=== PATIENT | female | born 1995 ===

== ENCOUNTER 2016-10-31 10:51 | Emergency (ER) | payer OTHER ==
[2016-10-31 11:00] VITALS: TEMP 98.6
[2016-10-31 12:22] LABS: RBC URINE 7 /hpf (0-3); URINE BILIRUBIN NEGATIVE (NEGATIVE); URINE BLOOD 1+ (NEGATIVE); URINE COLOR Yellow (YELLOW); URINE GLUCOSE (UA) NORMAL (Normal); URINE KETONE NEGATIVE (NEGATIVE); URINE LEUKOCYTE ESTERASE NEG Leu/uL (Negative); URINE PROTEIN NEGATIVE (NEGATIVE); URINE UROBILINOGEN NORMAL mg/dL (0.2-1.0); WBC URINE 1 /hpf (0-5)
--- NOTE | 2016-10-31 12:33 | C.PDOC ---
History Of Present Illness 21 y/o female presents to ED requesting test. Patient deaf, history obtained by mother. Pt took test at home 1 week ago with faint line, LMP 4/25. Contrary to triage, patient denies abdominal pain but reports breast tenderness and nausea. Denies vomiting, vaginal bleeding or any other complaints. Time Seen by Provider: 10/31/16 11:42 Chief Complaint (Nursing): Abdominal Pain History Per: Family History/Exam Limitations: physical impairment (deaf) Onset/Duration Of Symptoms: Days Current Symptoms Are (Timing): Still Present Severity: Mild Recent travel outside of the [place]: No Past Medical History Reviewed: Historical Data, Nursing Documentation, Vital Signs Vital Signs: Last Vital Signs Temp 98.6 F 10/31/16 10:57 Pulse 82 10/31/16 12:40 Resp 18 10/31/16 12:40 BP 115/68 10/31/16 12:40 Pulse Ox 100 10/31/16 12:47 - Medical History PMH: No Chronic Diseases Surgical History: No Surg Hx Family History: States: Unknown Family Hx - Social History Hx Alcohol Use: No Hx Substance Use: No - Immunization History Hx Tetanus Toxoid Vaccination: No Hx Influenza Vaccination: No Hx Pneumococcal Vaccination: No Review Of Systems Constitutional: Positive for: Other (breast tenderness). Negative for: Fever Cardiovascular: Negative for: Chest Pain, Palpitations Respiratory: Negative for: Cough, Shortness of Breath Gastrointestinal: Positive for: Nausea. Negative for: Vomiting, Abdominal Pain Genitourinary: Negative for: Vaginal Bleeding, Pelvic Pain Musculoskeletal: Negative for: Back Pain Skin: Negative for: Rash Neurological: Negative for: Headache Physical Exam - Physical Exam Appears: Non-toxic, No Acute Distress Skin: Warm, Dry, No Rash Head: Atraumatic, Normacephalic Eye(s): bilateral: Normal Inspection Ear(s): Bilateral: Other (hearing impaired, hearing aids) Oral Mucosa: Moist Neck: Normal ROM Chest: Symmetrical Cardiovascular: Rhythm Regular, No Murmur Respiratory: Normal Breath Sounds, No Rales, No Rhonchi, No Wheezing Gastrointestinal/Abdominal: Normal Exam, Soft, No Tenderness, No Mass, No Distention, No Guarding Back: Normal Inspection, No CVA Tenderness Extremity: Bilateral: Atraumatic, Normal ROM Neurological/Psych: Oriented x3, Normal Speech Gait: Steady ED Course And Treatment O2 Sat by Pulse Oximetry: 100 (room air) Pulse Ox Interpretation: Normal Medical Decision Making Medical Decision Making: Plan: * UA * U preg (+) test. Inform the patient and mother of results. Instructed patient to follow up outpatient with OBGYN for care. Disposition Counseled Patient/Family Regarding: Diagnosis, Need For Followup, Rx Given - Disposition Referrals: [facility] [Outside] [facility] [Outside] [facility] [Outside] Disposition: HOME/ ROUTINE Disposition Time: 12:30 Condition: STABLE Additional Instructions: Martinez prueba fue positiva para el embarazo Es importante que usted siga en la clnica con gineclogo Supriya vitaminas prenatales Prescriptions: Multivit/Folic Acid/I [ Plus] 1 tab PO DAILY #60 tab Instructions: (ED) Print Language: HUNGARIAN - POA Present On Arrival: None - Clinical Impression Clinical Impression: Positive test - 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 - Scribe Statement The provider has reviewed the documentation as recorded by the Scribrobson Montiel All medical record entries made by the Camiloibrobson were at my direction and personally dictated by me. I have reviewed the chart and agree that the record accurately reflects my personal performance of the history, physical exam, medical decision making, and the department course for this patient. I have also personally directed, reviewed, and agree with the discharge instructions and disposition.
[2016-10-31 12:42] VITALS: BP 115/68; PULSE 82; RESP 18
[2016-10-31 12:46] VITALS: O2SAT 100
== END 2016-10-31 12:45 | disposition home or self-care (01) ==
LOC: C.ER 10:51
DX: Z32.01 Encounter for pregnancy test, result positive (principal)

== ENCOUNTER 2017-06-07 14:29 | Emergency (ER) | payer OTHER ==
[2017-06-06 10:05] VITALS: BMI 29.7
== END 2017-06-07 15:35 | disposition home or self-care (01) ==
LOC: C.EROB 14:29
DX: Z36.9 Encounter for antenatal screening, unspecified (principal); Z3A.39 39 weeks gestation of pregnancy

== ENCOUNTER 2017-06-12 06:09 | Emergency (ER) | payer MEDICAID, OTHER ==
[2017-06-06 10:05] VITALS: BMI 29.7
--- NOTE | 2017-06-12 07:33 | OBHP ---
Datetime: 06/12/2017 07:27 IP Adm Impression: Term, intrauterine ; No Active Labor IP Admit Plan: Discharge home Admit Comment, IP Provider: Chief complaint-contractions HPI Patient is a 22 year old at 39w6d HORACIO 06/13/2017 by LMP presents to L+D for CTX .denies va ginal bleeding or loss of fluid. 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 09/05/2016 Denies hx of fibroids, ovarian cysts, STIs Denies hx of abnormal pap smears Allergies: NKDA Medications: PNV Medical History: Congenital Deafness Surgical Histry: Denies Social History: Denies alcohol, tobacco, drug use Family History: Non-contributor Exam see exam section A/P 22 y/o at 39.6 wga with c/o ctx.no active labor -discharge home -follow up in clinic in 2 days Pelvic Type - PN: Adequate Extremities - PN: Normal Abdomen - PN: Normal Back - PN: Normal Lungs - PN: Normal Heart - PN: Normal Neurologic - PN: Normal General - PN: Normal Contraction Comments Provider: irregular EGA AdmitDate IP: 39.6 Vital Signs Provider: Reviewed IP Chief Complaint: Uterine contractions FHR Category Provider Fetus A: Category I Dilatation, Provider: 0 Genitourinary Exam: Normal DTRs - PN: Normal Datetime: 06/07/2017 15:50 FHR - Baseline A Provider: 140 Comments, ACOG Physical Exam: VSS Gen: AAOx3 Abd: Soft, gravid Ext: No clubbing, cyanosis, edema SVE: closed/thick/high IP Hx Assessment: The History has been Reviewed and is Current NICHD Variability Prov Fetus A: Moderate 6-25bpm NICHD Accel Fetus A IP Provider: 15X15 NICHD Decel Fetus A IP Provider: None Effacement, Provider: thick Station, Provider: high
[2017-06-12 11:16] VITALS: BP 129/78; PULSE 84; TEMP 97.9
== END 2017-06-12 07:00 | disposition home or self-care (01) ==
LOC: C.EROB 06:09
DX: O47.1 False labor at or after 37 completed weeks of gestation (principal); Z3A.39 39 weeks gestation of pregnancy

== ENCOUNTER 2017-06-13 07:04 | Inpatient (IN) | payer MEDICAID, OTHER ==
[2017-06-13 07:28] VITALS: BMI 32.3
--- NOTE | 2017-06-13 07:28 | OBHP ---
Datetime: 06/13/2017 07:24 IP Adm Impression: Term, intrauterine Admit Comment, IP Provider: a 40weeks deaf came with c/o ctxs started 3 days , got worse angel, n o vb, lof+fm. obhx primi pmh deaf med pnv allnkda psh den soch den ve closed a/p at 40weeks pain ua npo/ivf cont renee and efm cont close obser Pelvic Type - PN: Adequate Extremities - PN: Normal Abdomen - PN: Normal Back - PN: Normal Breast - PN: Normal Lungs - PN: Normal Heart - PN: Normal Thyroid - PN: Normal Neurologic - PN: Normal HEENT - PN: Normal General - PN: Normal FHR - Baseline A Provider: 130 Contraction Comments Provider: q1-5 EGA AdmitDate IP: 40.0 Vital Signs Provider: Reviewed; Within Normal Limits IP Chief Complaint: Uterine contractions NICHD Variability Prov Fetus A: Moderate 6-25bpm NICHD Accel Fetus A IP Provider: 15X15 FHR Category Provider Fetus A: Category I Dilatation, Provider: 0 Effacement, Provider: 0 Station, Provider: -3 Genitourinary Exam: Normal DTRs - PN: Normal
[2017-06-13] MEDS: Lactated Ringer's 1,000 ML IV SCH ×2 (08:09→18:26)
[2017-06-13 08:56] LABS: SQUAMOUS EPITHIAL 8 /hpf (0-5); URINE BACTERIA FEW (<OCC); URINE BILIRUBIN NEGATIVE (NEGATIVE); URINE BLOOD 3+ (NEGATIVE); URINE CLARITY Hazy (Clear); URINE COLOR Yellow (YELLOW); URINE GLUCOSE (UA) NORMAL (Normal); URINE NITRATE NEGATIVE (NEGATIVE); URINE PROTEIN 2+ mg/dL (NEGATIVE); URINE UROBILINOGEN NORMAL mg/dL (0.2-1.0)
[2017-06-13 08:57] LABS: URINE LEUKOCYTE ESTERASE 1+ Leu/uL (Negative)
--- NOTE | 2017-06-13 09:32 | OBADHP ---
Datetime: 06/13/2017 07:24 Admit Comment, IP Provider: a 40weeks deaf came with c/o ctxs started 3 days , got worse angel, n o vb, lof+fm. obhx primi pmh deaf med pnv allnkda psh den soch den ve closed a/p at 40weeks pain ua npo/ivf cont renee and efm cont close obser after ivf pt still c/o pin 12/21. bp 147/87 plan admit to l_d pain mange cont renee and efm pih work anticipte Pelvic Type - PN: Adequate Extremities - PN: Normal Abdomen - PN: Normal Back - PN: Normal Breast - PN: Normal Lungs - PN: Normal Heart - PN: Normal Thyroid - PN: Normal Neurologic - PN: Normal HEENT - PN: Normal General - PN: Normal FHR - Baseline A Provider: 130 Contraction Comments Provider: q1-5 IP Hx Assessment: The History has been Reviewed and is Current Vital Signs Provider: Reviewed; Within Normal Limits IP Chief Complaint: Uterine contractions NICHD Variability Prov Fetus A: Moderate 6-25bpm NICHD Accel Fetus A IP Provider: 15X15 FHR Category Provider Fetus A: Category I Dilatation, Provider: 0 Effacement, Provider: 0 Station, Provider: -3 Genitourinary Exam: Normal DTRs - PN: Normal EGA AdmitDate IP: 40.0 IP Adm Impression: Term, intrauterine ; Intact Membranes Datetime: 06/12/2017 07:27 IP Admit Plan: Discharge home Datetime: 06/07/2017 15:50 Comments, ACOG Physical Exam: VSS Gen: AAOx3 Abd: Soft, gravid Ext: No clubbing, cyanosis, edema SVE: closed/thick/high NICHD Decel Fetus A IP Provider: Agnes
[2017-06-13 10:11] LABS: BASO # 0.1 K/uL (0.0-0.2); EOS # 0.1 K/uL (0.0-0.7); EOS % 0.6 % (0.0-4.0); HEMOGLOBIN 9.2 g/dL (11.0-16.0); LYMPH # 1.9 K/uL (1.0-4.3); LYMPH % 20.5 % (20.0-40.0); MEAN CELL VOLUME 75.7 fL (81.0-99.0); MEAN CORPUSCULAR HEMOGLOBIN 25.3 pg (27.0-31.0); MEAN CORPUSCULAR HGB CONC 33.4 g/dL (33.0-37.0); MEAN PLATELET VOLUME 12.3 fL (7.2-11.7); MONO # 0.9 K/uL (0.0-0.8); MONO % 9.4 % (0.0-10.0); NEUT # 6.2 K/uL (1.8-7.0); NEUT % 68.5 % (50.0-75.0); NRBC % 0.1 % (0.0-2.0); RBC 3.63 Mil/uL (3.80-5.20); RED CELL DISTRIBUTION WIDTH 17.5 % (11.5-14.5); WHITE BLOOD COUNT 9.1 K/uL (4.8-10.8)
[2017-06-13 10:23] LABS: INR 0.9; PROTHROMBIN TIME 9.9 SECONDS (9.7-12.2)
[2017-06-13] MEDS ORDERED: Nalbuphine 20 mg/ml Inj (1 ml) ONE ×3 (10:47→18:06)
[2017-06-13] MEDS: Nalbuphine 20 mg/ml Inj (1 ml) IVP PRN ×2 (10:50→18:15)
[2017-06-13 10:52] LABS: ALT/SGPT 42 U/L (9-52); AST/SGOT 45 U/L (14-36); GFR AFRICAN-AMERICAN > 60; GFR NON-AFRICAN AMERICAN > 60
[2017-06-13 11:54] LABS: ALB/GLOB RATIO 0.9 (1.0-2.1); ALBUMIN 3.2 g/dL (3.5-5.0); BLOOD UREA NITROGEN 7 mg/dL (7-17); CALCIUM 8.9 mg/dl (8.6-10.4)
--- NOTE | 2017-06-13 17:48 | OBPN ---
Datetime: 06/13/2017 17:46 IP Procedures: Sterile Vag Exam Contraction Comments Provider: q1-5 FHR - Baseline A Provider: 130 IP Progress Note Comment: pt was examined at bed side ve 1/80/-3 cont close observation will put cervidil Vital Signs Provider: Reviewed; Within Normal Limits NICHD Accel Fetus A IP Provider: 15X15 FHR Category Provider Fetus A: Category I NICHD Variability Prov Fetus A: Moderate 6-25bpm Dilatation, Provider: 1 Effacement, Provider: 80 Station, Provider: -3 Datetime: 06/07/2017 15:50 NICHD Decel Fetus A IP Provider: None
[2017-06-13] MEDS ORDERED: Oxytocin 30 UNIT 30 UNITS/500 ML BAG IV PRN (21:13)
[2017-06-14 01:31] LABS: HEMOGLOBIN 8.8 g/dL (11.0-16.0); MEAN CELL VOLUME 75.9 fL (81.0-99.0); MEAN CORPUSCULAR HEMOGLOBIN 25.1 pg (27.0-31.0); MEAN PLATELET VOLUME 12.3 fL (7.2-11.7); RBC 3.51 Mil/uL (3.80-5.20); RED CELL DISTRIBUTION WIDTH 17.4 % (11.5-14.5); WHITE BLOOD COUNT 10.2 K/uL (4.8-10.8)
[2017-06-14 01:44] LABS: PLATELET COUNT 112 K/uL (130-400)
[2017-06-14 02:49] LABS: BANDS 4 % (0-2); LYMPHOCYTE 16 % (20-40); MONOCYTE 6 % (0-10); NEUTROPHIL 74 % (50-75); PLATELET ESTIMATE SLIGHTLY DECREASED (NORMAL); TOTAL CELLS COUNTED 100
[2017-06-14 02:50] LABS: ANISOCYTOSIS MODERATE; GIANT PLATELETS PRESENT; LARGE PLATELETS PRESENT; POLYCHROMIC MODERATE
[2017-06-14 02:51] LABS: HYPOCHROMIC SLIGHT; MICROCYTOSIS MODERATE; SPHEROCYTES SLIGHT
[2017-06-14] MEDS ORDERED: Fentanyl/Bupivacaine HCl 250 ML EPI ONE (03:33)
[2017-06-14] MEDS ORDERED: Oxytocin 30 UNIT 30 UNITS/500 ML BAG IV ONE ×2 (03:41→16:53)
--- NOTE | 2017-06-14 06:34 | OBPN ---
Datetime: 06/14/2017 06:31 IP Progress Impression: Normal progression of labor IP Procedures: Artificial ROM; Sterile Vag Exam FHR - Baseline A Provider: 130 IP Progress Note Comment: pt was seen bed side. feels good ve 4/90/-1 arom mild meconium cont pitocin s/p epidural anticipate Vital Signs Provider: Reviewed; Within Normal Limits NICHD Accel Fetus A IP Provider: 15X15 FHR Category Provider Fetus A: Category I NICHD Variability Prov Fetus A: Moderate 6-25bpm Dilatation, Provider: 4 Effacement, Provider: 90 Station, Provider: -1
[2017-06-14 09:30] LABS: BASO # 0.1 K/uL (0.0-0.2); BASO % 0.5 % (0.0-2.0); EOS % 0.4 % (0.0-4.0); LYMPH # 1.6 K/uL (1.0-4.3); LYMPH % 16.7 % (20.0-40.0); MEAN CELL VOLUME 75.4 fL (81.0-99.0); MEAN CORPUSCULAR HEMOGLOBIN 25.1 pg (27.0-31.0); MEAN CORPUSCULAR HGB CONC 33.3 g/dL (33.0-37.0); MEAN PLATELET VOLUME 12.5 fL (7.2-11.7); MONO # 0.9 K/uL (0.0-0.8); MONO % 9.2 % (0.0-10.0); NEUT # 6.9 K/uL (1.8-7.0); NEUT % 73.2 % (50.0-75.0); NRBC % 0.1 % (0.0-2.0); RBC 3.6 Mil/uL (3.80-5.20); RED CELL DISTRIBUTION WIDTH 17.3 % (11.5-14.5); WHITE BLOOD COUNT 9.4 K/uL (4.8-10.8)
[2017-06-14 09:41] LABS: SQUAMOUS EPITHIAL 2 /hpf (0-5); URINE BACTERIA RARE (<OCC)
[2017-06-14 09:46] LABS: PH,URINE 5.5 (5.0-8.0); URINE BILIRUBIN MODERATE (NEGATIVE); URINE BLOOD LARGE (NEGATIVE); URINE CLARITY Clear (Clear); URINE COLOR YELLOW (YELLOW); URINE GLUCOSE (UA) NEGATIVE (Normal)
[2017-06-14 09:47] LABS: INR 0.9; PROTHROMBIN TIME 10.2 SECONDS (9.7-12.2); URINE LEUKOCYTE ESTERASE NEGATIVE Leu/uL (Negative); URINE NITRATE NEGATIVE (NEGATIVE); URINE PROTEIN 30 mg/dL (NEGATIVE)
[2017-06-14 09:55] LABS: ALB/GLOB RATIO 0.9 (1.0-2.1); ALBUMIN 3.1 g/dL (3.5-5.0); ALT/SGPT 52 U/L (9-52); AST/SGOT 58 U/L (14-36); BLOOD UREA NITROGEN 12 mg/dL (7-17); CALCIUM 8.9 mg/dl (8.6-10.4); GFR AFRICAN-AMERICAN > 60; GFR NON-AFRICAN AMERICAN > 60; URIC ACID 6.7 mg/dL (2.2-7.5)
[2017-06-14] MEDS ORDERED: Magnesium Sulfate 4 gm/100 ml 4 GM/100 ML BAG IVPB ONE ×2 (13:00→13:21)
[2017-06-14] MEDS ORDERED: Magnesium Sulfate 20 gm 20 GM/500 ML BAG IV SCH ×2 (13:00→20:45)
[2017-06-14] MEDS ORDERED: Lactated Ringer's 1,000 ML IV SCH (13:03)
[2017-06-14] MEDS ORDERED: Magnesium Sulfate 20 gm 20,000 MG/500 ML BAG IV ONE ×2 (13:21→20:47)
--- NOTE | 2017-06-14 13:47 | OBHP ---
Datetime: 06/13/2017 07:24 IP Adm Impression: Term, intrauterine ; Intact Membranes Admit Comment, IP Provider: a 40weeks deaf came with c/o ctxs started 3 days , got worse angel, n o vb, lof+fm. obhx primi pmh deaf med pnv allnkda psh den soch den ve closed a/p at 40weeks pain ua npo/ivf cont renee and efm cont close obser after ivf pt still c/o pin 12/21. bp 147/87 plan admit to l_d pain mange cont renee and efm pih work anticipte IP Hx Assessment: The History has been Reviewed and is Current EGA AdmitDate IP: 40.0
[2017-06-14] MEDS ORDERED: AMPicillin 2 GM in Sodium Chloride 100 ML IVPB SCH (15:00)
[2017-06-14] MEDS ORDERED: Sodium Citrate/Citric Acid 15 ml Sol PO ONE (17:27)
[2017-06-14] MEDS ORDERED: Sodium Bicarbonate (8.4%) 50 Meq Syringe ONE (17:41)
[2017-06-14] MEDS ORDERED: cefOXitin 2 GM in Sodium Chloride 0.9% 100 ML IVPB ONE (18:00)
[2017-06-14] MEDS ORDERED: Oxytocin 10 Units/ml Inj ONE (18:53)
[2017-06-14] MEDS ORDERED: Midazolam 2 MG/2 ML VIAL ONE (19:02)
[2017-06-14] MEDS ORDERED: Morphine 1 mg/ml preservative-free Inj(Duramorph) ONE (19:05)
[2017-06-14] MEDS ORDERED: Lidocaine 2% MPF (5 ml) Inj ONE (19:13)
[2017-06-14] MEDS ORDERED: cefOXitin IV 2 gm in Saline 2 GM in Sodium Chloride 0.9% 100 ML IV SCH (20:45)
[2017-06-14 22:41] LABS: HEMOGLOBIN 9.2 g/dL (11.0-16.0); MEAN CELL VOLUME 75.4 fL (81.0-99.0); MEAN CORPUSCULAR HEMOGLOBIN 24.2 pg (27.0-31.0); MEAN CORPUSCULAR HGB CONC 32.1 g/dL (33.0-37.0); MEAN PLATELET VOLUME 11.9 fL (7.2-11.7); RBC 3.78 Mil/uL (3.80-5.20); WHITE BLOOD COUNT 18.8 K/uL (4.8-10.8)
--- NOTE | 2017-06-14 23:10 | OBPN ---
Datetime: 06/14/2017 22:53 IP Progress Impression: Arrest of dilatation/descent IP Procedures: Sterile Vag Exam IP Progress Plan: Deliver- Section Membranes, Provider: Ruptured Contraction Comments Provider: >200 Sundance units FHR - Baseline A Provider: 145 Gestation - Est Wks by US: 40w 1d Presentation-Admit: Vertex IP Progress Note Comment: Patient had been examined as follows: 1) 0930 hours: 5/80/-2. Pitcin at 11 mU. Continue managment 2) 1250 hours 5-/+1. IUPC inserted without incident. Ampicillin had been started Pitocin at 14 Munits. continue present management. BP noted to be increasing, in conjunction with mild increase in AST/ALT, decision made to start magnesium. This was explained to patient [facility] or applier [phone]; and talent partner [id number]. Patient expressd an understanding and agrees. 3) 1700 hours: 5-90/+2. Pitocin maximized at 20 Units. > 200 Sundance Units. At this time, pat ient counseled for abdominal delivery secondary to arrest of dil[place] [id number] was employed to explain. Patient expressed an understanding and agrees. No questions offered. After an additional discussion of risks and possible complications, consents were signed, da sneha, witnessed and placed in chart. 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 Assessment: 22 y.o. , 40w 1d, arrest of dilatation, mild pre-eclampsia with gestational throm bocytopenia. Platelets stable. Category 1 tracing. Clinically stable. Plan: 1) D/C pitocin 2) D/C magnesium 3) NOtify anesthesia 4) Notify peds 5) Abdominal prep and shave 6) Mefoxin 2 grams 7) crew caller to O.R. Vital Signs Provider: Reviewed; Within Normal Limits FHR Category Provider Fetus A: Category I Dilatation, Provider: 5 Effacement, Provider: 80 Station, Provider: 2 NICHD Decel Fetus A IP Provider: None
--- NOTE | 2017-06-14 23:18 | OBDS ---
DELIVERY PERSONNEL Delivery Doctor: Justin Jones MD Scrub Nurse: Tiffanie Aguila OBT Nursing Clerk: DANELLA/G.ODOEMENA Anesthesiologist: dr AGUIRRE MATERNAL INFORMATION Delivery Anesthesia: Epidural Medications in Delivery: PITOCIN Estimated Blood Loss (ml): 800 Provider Comments: Unremarkable primary LTCS with atraumatic delivery of live female infant, AVELINA po sition, thick meconium liquor noted. weight 8lb 30z, 's 9/9. Cord pH 7.26. Manual extraction o f placenta - grossly normal, 3 vessel cord. Routine closure. Hemostasis assured throughout the procedure. Skin reapproximaned with 4-0 monocry l. Patient tolerated procedure; left O.R. in stable condition LABOR SUMMARY EDC: 06/13/2017 00:00 No. Babies in Womb: 1 Attempted: No Labor Anesthesia: Epidural LABOR INFORMATION Reason for Induction: Not Applicable Oxytocin: Augmentation Group B Beta Strep: Negative MEMBRANES Membranes Rupture Method: Artificial Rupture of Membranes: 06/14/2017 18:30 Length of Rupture (hrs): 0.32 Amniotic Fluid Color: Light Meconium Amniotic Fluid Amount: Moderate Amniotic Fluid Odor: Normal STAGES OF LABOR Stage 3 hrs: 0 Stage 3 min: 0 VAGINAL DELIVERY Episiotomy: None Laceration Extension: N/A Laceration Type: None Sponge Count Correct: N/A Sharps Count Correct: N/A CSECTION DELIVERY Primary Indication: Arrest of dilatation CSection Urgency: Elective CSection Incidence: Primary CSection Incision: Lower Uterine Transverse Uterine Closure: Double-layer closure BABY A INFORMATION Infant Delivery Date/Time: 06/14/2017 18:49 Method of Delivery: Born in Route : No : N/A Forceps: N/A Vacuum Extraction: N/A Shoulder Dystocia : No SHOULDER DYSTOCIA BABY A Delivery Date/Time: 06/14/2017 18:49 PRESENTATION/POSITION BABY A Presentation: Cephalic Cephalic Presentation: Vertex Vertex Position: Left Occipital Anterior Breech Presentation: N/A PLACENTA INFORMATION BABY A Placenta Delivery Time : 06/14/2017 18:49 Placenta Method of Delivery: Manual Removal Placenta Status: Delivered SCORES BABY A Heart Rate 1 min: >100 bpm Resp Effort 1 min: Good Cry Reflex Irritability 1 min: Cough or Sneeze or Pulls Away Muscle Tone 1 min: Active Motion Color 1 min: Body [place], Extremities Blue SCORE 1 MIN: 9 Heart Rate 5 min: >100 bpm Resp Effort 5 min: Good Cry Reflex Irritability 5 min: Cough or Sneeze or Pulls Away Muscle Tone 5 min: Active Motion Color 5 min: Body [place], Extremities Blue SCORE 5 MIN: 9 INFANT INFORMATION BABY A Gestational Age at Delivery: 40.0 Gestational Status: Term Outcome : Liveborn Infant Condition : Stable Sex: Female IDENTIFICATION/MEDS BABY A ID Band Number: [id number] ID Band Location: Left Leg; Left Arm Sensor Applied: Yes Sensor Number: [id number] Sensor Location : Cord Clamp WEIGHT/LENGTH BABY A Birthweight (gms): 3710 Infant Weight (lb): 8 Infant Weight (oz): 3 Length Inches: 20.50 Length cms: 52.1 CORD INFORMATION BABY A No. Cord Vessels: 3 Nuchal Cord : N/A Cord Blood Taken: N/A Infant Suction: Mouth; Nose ASSESSMENT BABY A Infant Complications: Meconium Physical Findings at Delivery: Molding of the Head Physical Findings Other: 98.1 hr 158 rr 52 spo2 100 % (ra) Infant Respirations: Appears Normal Instructor Bridge/ALS Called : No Infant Care By: Dr. Juarez Transferred To: Remains with Mother
[2017-06-15] MEDS: cefOXitin IV 2 gm in Saline 2 GM in Sodium Chloride 0.9% 100 ML IV SCH ×3 (02:46→20:30)
--- NOTE | 2017-06-15 03:50 | PCM.SURG1 ---
Surgeon's Initial Post Op Note - Surgeon's Notes Surgeon: Jennifer Jones MD Junior Sales Assistant: Dr. Sarabia; 2nd Assist: Margot Riggs DO. 3rd Assist: Cam Hood MS3 Type of Anesthesia: Other (Epidural) Anesthesia Administered By: Pa Ritter MD Pre-Operative Diagnosis: 40 weeks. Arrest of cervical dilatation. Mild pre- eclampsia. Gestational thrombocytopenia Operative Findings: Live female , AVELINA position, weight 8lb 3oz, 's 9/ 9; thick meconium liquor; cord pH 7.26. Normal uterus. normal fallopian tubes and ovaries, bilaterally Post-Operative Diagnosis: Same; S/P primary LTCS Operation Performed: Priamry transverse lower uterine segment section Specimen/Specimens Removed: Placenta Estimated Blood Loss: EBL {In ML}: 800 (U.O. 500 mL; IVFs 2,000 mL) Blood Products Given: N/A (Other: pitocin 40 units; hemabate 250 micrograms IM x 1) Drains Used: No Drains Post-Op Condition: Good Date of Surgery/Procedure: 06/14/17 Time of Surgery/Procedure: 20:00
[2017-06-15 04:36] LABS: BASO # 0.1 K/uL (0.0-0.2); BASO % 0.4 % (0.0-2.0); EOS % 0.1 % (0.0-4.0); HEMOGLOBIN 8.6 g/dL (11.0-16.0); LYMPH # 1.6 K/uL (1.0-4.3); LYMPH % 8.9 % (20.0-40.0); MEAN CELL VOLUME 75.8 fL (81.0-99.0); MEAN CORPUSCULAR HEMOGLOBIN 24.6 pg (27.0-31.0); MEAN CORPUSCULAR HGB CONC 32.4 g/dL (33.0-37.0); MEAN PLATELET VOLUME 11.7 fL (7.2-11.7); MONO # 1.7 K/uL (0.0-0.8); MONO % 9.7 % (0.0-10.0); NEUT # 14.3 K/uL (1.8-7.0); NEUT % 80.9 % (50.0-75.0); NRBC % 0.1 % (0.0-2.0); PLATELET COUNT 112 K/uL (130-400); WHITE BLOOD COUNT 17.7 K/uL (4.8-10.8)
[2017-06-15 05:08] LABS: ALB/GLOB RATIO 0.8 (1.0-2.1); ALBUMIN 2.6 g/dL (3.5-5.0); ALT/SGPT 56 U/L (9-52); AST/SGOT 67 U/L (14-36); BLOOD UREA NITROGEN 10 mg/dL (7-17); CALCIUM 7.7 mg/dl (8.6-10.4); GFR AFRICAN-AMERICAN > 60; GFR NON-AFRICAN AMERICAN > 60; MAGNESIUM 4.5 mg/dL (1.6-2.3)
--- NOTE | 2017-06-15 05:59 | OP ---
PROCEDURE DATE: 06/14/2017 SURGEON: Jennifer Jones MD ANIMATOR: Robbie Sarabia MD SECOND FAMILY SERVICE AIDE: Margot Riggs DO THIRD FAMILY SERVICE AIDE: Cam Hood MS-3 ANESTHESIA: Epidural. ANESTHESIOLOGIST: Pa Ritter MD PREOPERATIVE DIAGNOSES: 40-week gestation, arrest of cervical dilatation, mild preeclampsia with gestational thrombocytopenia. POSTOPERATIVE DIAGNOSES: 40-week gestation, arrest of cervical dilatation, mild preeclampsia with gestational thrombocytopenia, status post primary low transverse Caesarean section. OPERATIVE FINDINGS: Live female from the left occipital anterior position, weight 8 pounds 3 ounces, Apgars of 9 and 9 at 1 and 5 minutes respectively. Thick meconium liquor noted. Cord pH was 7.26. Normal uterus; and normal fallopian tubes and ovaries bilaterally. SPECIMENS: Placenta. OPERATION PERFORMED: Primary transverse lower uterine segment Caesarean section. ESTIMATED BLOOD LOSS: 800 mL. URINE OUTPUT: 500 mL. INTRAVENOUS FLUIDS: 2000 mL of lactated Ringer's with a total of 40 Units Pitocin. Hemabate 250 micrograms IM x1 was also given. COMPLICATIONS: None. PROCEDURE: The patient was taken to the operating room after having obtained informed consent for the anticipated procedure. This included a discussion of risks and possible complications including but not limited to infection requiring continued antibiotics, hemorrhage, requiring blood transfusion, repair of any damage to internal organs, possible Caesarean hysterectomy. Patient offered no questions. Consents were witnessed, signed, dated, and placed in the chart. Patient abdomen was shaved. Santos had been inserted under sterile conditions earlier. Patient received Mefoxin 2 grams IV piggyback. She was transported to the main OR with her epidural catheter in situ. In the operating room, bolus of epidural anesthesia was administered. After assuring an adequate level of anesthesia, the patient's abdomen was prepped, and she was subsequently draped in usual sterile fashion. Once again the patient's abdomen was tested to ensure adequate anesthesia. A Pfannenstiel incision was made on the skin using a scalpel. The incision was carried down through the subcutaneous tissue using the Bovie electrocautery. The fascia was identified. It was nicked in the midline and the incision was extended bilaterally also using the Bovie electrocautery. The rectus muscle was identified and was dissected off the overlying fascia. After the rectus muscles, the parietal peritoneum was identified and it was entered by blunt dissection. The vesicouterine reflection was identified and the bladder flap was created. A transverse incision was made on the lower uterine segment using the scalpel. Upon entering the endometrial cavity, thick meconium liquor was noted. Atraumatic delivery of the ensued, findings as above. On the operative field, with minimal stimulation as possible, the umbilical cord was doubly clamped and cut. The infant was handed off the operative field to the day care director in attendance. A segment of the umbilical cord was sequestered for cord pH analysis; results as above. Manual extraction was performed to remove the placenta. It was grossly intact with three vessels present in the cord. The uterus was then exteriorized for closure. This was done in two layers using 0 Vicryl. The first layer was in a running interlocking fashion. The second layer was in a horizontal imbricating fashion. Attention was then directed to the posterior aspect of the uterus with the findings as above. Copious irrigation was performed. The uterine incision was noted to be hemostatic, and Surgicel was placed along the uterine incision. The vesicouterine reflection was reapproximated using 2-0 chromic in a running fashion. The uterus was returned to the abdominal cavity and the paracolic gutters were cleared of all debris. The parietal peritoneum was reapproximated using 2-0 chromic in a running fashion and the rectus muscle was reapproximated using 3-0 chromic in a running fashion. The fascia was reapproximated using 1-0 Vicryl in a running fashion in two halves. The subcutaneous tissue was reapproximated using plain catgut in interrupted stitches. The skin was reapproximated using 4-0 Monocryl on a Uri needle. Steri-Strips were applied and a pressure dressing was applied. The patient was subsequently positioned in a frog-leg manner. Uterine exploration was performed. Additional blood and clots were removed. The uterus was contracted and firm, approximately one fingerbreadth below the umbilicus. The patient had the opportunity to tran to the who was transferred to the well baby nursery. The patient was then transferred back to [facility] in stable condition. Dr. Sarabia was present for the entire procedure from beginning to end. His presence was necessary for: 1) assuring adequate visualization of the operative field at all times 2) the safe and atraumatic delivery of the 3) assuring adequate hemostasis Jennifer Jones MD MTDJabari
[2017-06-15 06:04] LABS: BANDS 1 % (0-2); LYMPHOCYTE 10 % (20-40); MONOCYTE 10 % (0-10); NEUTROPHIL 79 % (50-75); TOTAL CELLS COUNTED 100
[2017-06-15 06:05] LABS: ANISOCYTOSIS SLIGHT; PLATELET ESTIMATE SLIGHTLY DECREASED (NORMAL); POIKILOCYTOSIS SLIGHT
[2017-06-15] MEDS ORDERED: Magnesium Sulfate 20 gm 20,000 MG/500 ML BAG IV ONE (07:37)
[2017-06-15] MEDS ORDERED: Magnesium Sulfate 20 gm 20 GM/500 ML BAG IV SCH (10:45)
[2017-06-15] MEDS: Simethicone 80 mg Chewtab PO SCH ×3 (12:03→22:11)
[2017-06-15] MEDS: Oxycodone/Acetaminophen 5/325 mg Tab PO PRN (17:19)
[2017-06-15] MEDS ORDERED: Bisacodyl 5mg EC Tab PO ONE (20:11)
[2017-06-16] MEDS: cefOXitin IV 2 gm in Saline 2 GM in Sodium Chloride 0.9% 100 ML IV SCH (03:10)
[2017-06-16] MEDS: Simethicone 80 mg Chewtab PO SCH ×4 (09:35→22:41)
[2017-06-16] MEDS: Oxycodone/Acetaminophen 5/325 mg Tab PO PRN ×3 (09:38→22:40)
--- NOTE | 2017-06-16 13:08 | OBPPN ---
Datetime: 06/16/2017 13:03 PP Pain Prov: Within normal limits PP Nausea Prov: Denies PP Flatus Prov: Yes PP Heart Prov: Normal PP Lungs Prov: Normal PP Abdomen/Uterus Prov: Normal PP Lochia Prov: Normal PP Vulva/Perineum Prov: Normal PP CVA Tenderness Prov: Normal PP Extremities Prov: Normal PP C/S Incision Prov: Normal PP Progress Prov: Normal PP Impression Prov: Normal progression PP Plan Prov: Continue present management PP Progress Note Prov: S--patient denies any complaints.toelrating diet.ambulating and voiding witho ut difficulty.breast feeding. O-VS BP 120-140S/80S Abdomen gravid and nontender Extremities no calf tenderness Incision clean , dry and inatct A/P Patient s/p csection pod 2.Afebrile.BP stable -continue to monitor clsoely -encourage ambulation and po fluid intake Vital Signs Provider PP: Reviewed Vital Signs Provider Details PP: bp 120-140s/80s Datetime: 06/15/2017 14:06 PP BM Prov: No PP Comments Phys Exam Prov: Abdomen: soft, tender, fundus otto at two fingerbreaths above umbilicus deviated to the right, incision with dressing c/d/i
[2017-06-17 08:03] VITALS: BP 132/79; PULSE 93
[2017-06-17] MEDS: Oxycodone/Acetaminophen 5/325 mg Tab PO PRN (10:27)
[2017-06-17] MEDS: Simethicone 80 mg Chewtab PO SCH (10:29)
--- NOTE | 2017-06-17 14:14 | OBPPN ---
Datetime: 06/17/2017 13:57 PP Pain Prov: Within normal limits PP Nausea Prov: Denies PP Flatus Prov: Yes PP BM Prov: Yes PP Breasts Prov: Normal PP Heart Prov: Normal PP Lungs Prov: Normal PP Abdomen/Uterus Prov: Normal PP Lochia Prov: Normal PP Vulva/Perineum Prov: Not Done PP CVA Tenderness Prov: Normal PP Extremities Prov: Normal PP C/S Incision Prov: Normal PP Progress Prov: Normal PP Comments Phys Exam Prov: Abdomen: Soft. Non distended. (+) BS. Fundus firm, mobile, non tender. Incision with subcuticular closure - clean, dry and intact. Minimal lochia rubra. Extremities: (+) lower extremitiey edema bilaterally. No calf tenderness All other systems reviewed and are negative PP Impression Prov: Normal progression PP Plan Prov: Discharge PP Progress Note Prov: Patient received in room 459; mother and new boyfriend (not FOB) present. Alisha yancey is deaf: mother able to translate via sign language. (+) ambulating and voiding without difficul ty. (+) Flatus; (+) BM. INcisional pain, relieved with pain meds. Denies nausea, vomiting; headaches , blurred vision. P.E.: as above. Mildly obese in NAD. Awake, alert, oriented to time, person and place. Pleasant a nd cooperative. - POD#2 H/H 8.6/26.5; Rh(+) Assessment: POD#3, 22 y.o. P1, S/P primary LTCS for arrest of dilatation; complication - mild pre- eclampsia, HELLP syndrome. - S/P magnesium seizure prophylaxis x 24 hours. LFTs and platelets resolve d. Chronic anemia - asymptomatic; hemodynamically stable. Afebrile, vital signs stable. Clinically st able. Plan: 1) Discharge home 2) See full discharge instructions Vital Signs Provider PP: Reviewed; Within Normal Limits
--- NOTE | 2017-06-17 14:14 | OBDCSUM ---
Datetime: 06/17/2017 10:40 Discharged to, Provider: Home Follow up at, Provider: [facility] Disch Instr Activity: Normal activity Disch Instr Diet: Regular Discharge Diagnosis, Provider: Term Delivered Discharge Time: 06/17/2017 10:41 Follow up in weeks, Provider: 1 week Contraception discussed, Prov: No Disch Activity Restrictions: No lifting; No sexual activity; Nothing in vagina - [place], tampon s, douche Discharge Diagnosis Prov Other: Mild pre-eclampsia HEELP syndrome Anemia
[2017-06-17 18:57] VITALS: RESP 18; TEMP 97.3; O2SAT 98
--- NOTE | 2017-06-18 00:49 | OBPPN ---
Datetime: 06/15/2017 14:06 PP Progress Note Prov: Patient seen and examined at bedside and in no acute distress. Patient rates her lower abdominal pain 6/10. Patient has not passed gas or had a bowel movement. Patient has not be en walking because of the pain. Patient has minimal lochia and changed pad once overnight. A_P: 22 y/o F s/p POD#1 1. Stable, afebrile 2. pain managed with Percocet and Motrin 3. encourage ambulation and hydration 4. encourage breast feeding 5. plans discussed with Dr. Robert Sheehan, PGY-1 Attending note (Late entry): Patient evaluated by me with Resident. I agree with the above with th e following clarifications: 1) POD#1 S/P primary LTCS for arrest cervical dilatation, intrapartum complication of HELLP syndro me, mild pre-eclampsia. Platelets are stable. LFTs mildy elevated compared to prior day's results. D ecrease in H/H c/w blood loss from surgery. Patient is asymptomatic; hemodynamically stable. . 2) patient on magnesium sulphate for seizure prophylaxis. This is the reason patient has not been OOB. Magnesium at 1 gram /hour. Anticipate discontinue at 2100 hours. 3) Initial concern of decreased urine output by R.N. was allayed: gallagher catheter had been kinked 4) patient instructed on incentive spirometer use - patient otherwise clinically stable..
== END 2017-06-17 14:35 | disposition home or self-care (01) | DRG 765 ==
LOC: C.EROB 07:04 → C.4D 09:28 → C.4M 06-14 23:45
PROVIDERS: ADMIT Obstetrics & Gynecology; ATTEND Obstetrics & Gynecology
PROC: 10D00Z1 Extraction of Products of Conception, Low, Open Approach (ICD-10-PCS; principal; 2017-06-14)
DX: O14.04 Mild to moderate pre-eclampsia, complicating childbirth (principal); O62.1 Secondary uterine inertia; O99.12 Other diseases of the blood and blood-forming organs and certain disorders involving the immune mechanism complicating childbirth; D69.59 Other secondary thrombocytopenia; O77.0 Labor and delivery complicated by meconium in amniotic fluid; O99.02 Anemia complicating childbirth; O99.214 Obesity complicating childbirth; D64.9 Anemia, unspecified; H91.90 Unspecified hearing loss, unspecified ear; E66.9 Obesity, unspecified; Z3A.40 40 weeks gestation of pregnancy; Z37.0 Single live birth